=== PATIENT | female | born 1990 | race Caucasian/White ===

== ENCOUNTER 2017-08-08 19:36 | Outpatient (CLI) | END 2017-08-09 01:15 | disposition home or self-care (01) ==

== ENCOUNTER 2017-08-10 11:54 | Inpatient (IN) | END 2017-08-12 19:03 | disposition home or self-care (01) | DRG 775 ==

== ENCOUNTER 2018-01-07 06:54 | Day surgery (SDC) | END 2018-01-07 13:57 | disposition home or self-care (01) ==